=== PATIENT | male | born 1950 | race Two or more races ===

== ENCOUNTER 2024-07-10 06:54 | Day surgery (SDC) | payer OTHER ==
[2024-07-10] MEDS ORDERED: fentaNYL CITRATE 50 MCG/ML AMPUL IV ONE (12:15)
[2024-07-10] MEDS ORDERED: MIDAZOLAM HCL 2 MG/2 ML VIAL IV ONE (12:15)
[2024-07-10] MEDS ORDERED: DIPHENHYDRAMINE HCL 50 MG/ML VIAL 1ML IV ONE (12:15)
== END 2024-07-10 13:25 | disposition home or self-care (01) ==
LOC: CIR.AMB 06:54
PROVIDERS: ATTEND Surgery
DX: D12.4 Benign neoplasm of descending colon (principal); D12.2 Benign neoplasm of ascending colon; R19.4 Change in bowel habit; K63.5 Polyp of colon; K57.30 Diverticulosis of large intestine without perforation or abscess without bleeding; K64.8 Other hemorrhoids